=== PATIENT | male | born 1955 | race Caucasian/White ===

== ENCOUNTER → 2016-12-22 | Outpatient (CLI) | payer MEDICARE, MEDICAID ==
[2016-12-22 17:28] LABS: ADJUSTED CALCIUM 8.9 mg/dL (8.4-10.2); ALBUMIN 4.7 gm/dL (3.5-5.0); BILIRUBIN,TOTAL 0.5 mg/dL (0.0-1.0); CALCIUM 9.5 mg/dL (8.4-10.2); CREATININE, serum 0.86 mg/dL (0.66-1.25); TOTAL PROTEIN 8.8 gm/dL (6.4-8.2)
== END ==
LOC: COL.LAB 16:19
PROVIDERS: Nurse Practitioner
DX: I10 Essential (primary) hypertension (principal)

== ENCOUNTER → 2017-01-28 | Outpatient (CLI) | payer MEDICARE, MEDICAID ==
[~2017-01-28] MED LIST: AMBIEN 10MG10 MG PO; BETAPACE 80MG80 MG PO; COREG12.5 MG PO; DESYREL DIVIDO150 M1 PO; KLOR-CON 1010 MEQ PO; LACTULOSE10 GM/153 PO; LIPITOR 80MG80 MG PO; NITROSTAT0.4 MG/TAB SL; NORVASC 10MG10 MG PO; PEPCID40 MG PO; PRILOTC; PRILOTC PO; TYLENOL W/COD1 UDTAB PO; XANAX 0.5MG0.5 MG PO
== END ==
LOC: COL.RAD 09:43
DX: R76.8 Other specified abnormal immunological findings in serum (principal); R74.8 Abnormal levels of other serum enzymes; D64.9 Anemia, unspecified; K62.5 Hemorrhage of anus and rectum; R19.7 Diarrhea, unspecified; K50.90 Crohn's disease, unspecified, without complications

== ENCOUNTER 2017-02-06 10:51 | Day surgery (SDC) | payer MEDICARE, MEDICAID ==
[~2017-02-06] VITALS: Ht 167.6 cm; Wt 72.4 kg
[2017-02-06] MEDS ORDERED: TYLENOL W/COD1 UDTAB PO (11:24)
[2017-02-06] MEDS ORDERED: NORVASC 10MG10 MG PO (11:25)
[2017-02-06] MEDS ORDERED: LIPITOR 80MG80 MG PO (11:25)
[2017-02-06] MEDS ORDERED: PEPCID40 MG PO (11:26)
[2017-02-06] MEDS ORDERED: COREG12.5 MG PO (11:26)
[2017-02-06] MEDS ORDERED: LACTULOSE10 GM/153 PO (11:27)
[2017-02-06] MEDS ORDERED: KLOR-CON 1010 MEQ PO (11:27)
[2017-02-06] MEDS ORDERED: NITROSTAT0.4 MG/TAB SL (11:28)
[2017-02-06] MEDS ORDERED: DESYREL DIVIDO150 M1 PO (11:29)
[2017-02-06] MEDS ORDERED: BETAPACE 80MG80 MG PO (11:29)
[2017-02-06 11:30] VITALS: BP 134/77; PULSE 70; TEMP 97.7
[2017-02-06] MEDS ORDERED: XANAX 0.5MG0.5 MG PO ×2 (11:30→11:31)
[2017-02-06] MEDS ORDERED: PRILOTC (11:31)
[2017-02-06] MEDS ORDERED: AMBIEN 10MG10 MG PO (11:31)
[2017-02-06] MEDS ORDERED: PRILOTC PO (11:32)
[2017-02-06 12:25] VITALS: BP 105/67; PULSE 70; TEMP 97.9
[2017-02-06 12:30] VITALS: BP 102/70; PULSE 77
[2017-02-06 12:45] VITALS: BP 100/71; PULSE 68
[2017-02-06 13:34] VITALS: BP 94/61; PULSE 68
== END 2017-02-06 12:58 | disposition home or self-care (01) ==
LOC: SDCO 10:51
DX: K57.30 Diverticulosis of large intestine without perforation or abscess without bleeding (principal); K60.1 Chronic anal fissure; K92.1 Melena; K44.9 Diaphragmatic hernia without obstruction or gangrene; K74.60 Unspecified cirrhosis of liver; D64.9 Anemia, unspecified; K50.90 Crohn's disease, unspecified, without complications
CPT/HCPCS: J2250; J3010; J7030

== ENCOUNTER → 2017-03-02 | Outpatient (CLI) | payer MEDICARE, MEDICAID | LOC: COL.RAD 11:00 | DX: Z01.812 Encounter for preprocedural laboratory examination (principal); R59.0 Localized enlarged lymph nodes; I25.10 Atherosclerotic heart disease of native coronary artery without angina pectoris; L90.5 Scar conditions and fibrosis of skin; J18.1 Lobar pneumonia, unspecified organism; Z98.890 Other specified postprocedural states; R06.02 Shortness of breath; R06.2 Wheezing | CPT/HCPCS: Q9967 ==

== ENCOUNTER → 2017-08-14 | Outpatient (CLI) | payer MEDICARE, MEDICAID ==
[2017-08-14 14:34] LABS: BASO # 0.1 (0.0-0.2); BASO % 0.7 % (0.0-2.0); EOS # 0.3 (0.0-0.7); EOS % 3.7 % (0-4.0); GRAN # 4.5 (1.4-6.5); GRAN % 66.7 % (42.2-75.2); HEMOGLOBIN 14.2 g/dl (13.5-18.0); LYMPH # 1.1 (1.2-3.4); LYMPH % 16.2 % (20.0-51.0); MEAN CELL VOLUME 92 fl (80.0-100.0); MEAN CORPUSCULAR HEMOGLOBIN 31 pg (27.0-31.0); MEAN CORPUSCULAR HGB CONC 34 g/dl (33.0-37.0); MEAN PLATELET VOLUME 9.1 fl (7.4-10.4); MONO # 0.8 (0.1-0.6); MONO % 12.4 % (1.7-9.3); PLATELET COUNT 176 K/mm3 (130-400); RED BLOOD COUNT 4.59 M/mm3 (4.20-5.60); REDCELL DISTRIBUTION WIDTH-CV 13.9 % (11.5-14.5)
[2017-08-14 14:36] LABS: INR 1.1 (0.8-3.0); PROTHROMBIN TIME 12.4 SECONDS (9.7-12.8)
[2017-08-14 15:02] LABS: ALANINE AMINOTRANSFERASE 39 U/L (21-72); ALBUMIN 4.3 gm/dL (3.5-5.0); ALKALINE PHOSPHATASE 144 U/L (50-136); ANION GAP 15 mmol/L (7-16); AST,SGOT 37 U/L (15-37); BILIRUBIN,TOTAL 0.6 mg/dL (0.0-1.0); BLOOD UREA NITROGEN 9 mg/dL (9-20); CALCIUM 9.7 mg/dL (8.4-10.2); CARBON DIOXIDE 28 mmol/L (22-30); CHLORIDE 105 mmol/L (98-107); CREATININE, serum 0.83 mg/dL (0.66-1.25); GLUCOSE 108 mg/dL (74-106); POTASSIUM 4.5 mmol/L (3.4-5.0); SODIUM 147 mmol/L (137-145); TOTAL PROTEIN 8.3 gm/dL (6.4-8.2)
[2017-08-14 15:10] LABS: AMMONIA < 9 umol/L (11-35)
== END ==
LOC: COL.RAD 08-12 13:30 → COL.LAB 13:46 → COL.RAD 13:46
PROVIDERS: Physician Assistant
DX: K76.0 Fatty (change of) liver, not elsewhere classified (principal); D64.9 Anemia, unspecified; B19.20 Unspecified viral hepatitis C without hepatic coma

== ENCOUNTER → 2017-11-09 | Outpatient (CLI) | payer MEDICARE | LOC: COL.RAD 14:03 | DX: M25.552 Pain in left hip (principal) | CPT/HCPCS: J3301; Q9967 ==

== ENCOUNTER → 2017-12-21 | Outpatient (CLI) | payer MEDICARE ==
[~2017-12-21] MED LIST changes: +ASPIRIN E.C. 8181 MG PO; +DESYREL 100MG100 MG PO; +FERRO-TIME325 MG PO; +FLOMAX 0.40.4 MG/CAP PO; +KLONOPIN WAFER0.5 MG PO; +MULTI VITAMINS1 TAB PO; +NEURONTIN300 MG/CAP PO; +NEURONTIN600 MG/TAB PO; +PLAVIX 75MG TAB75 MG PO; +REQUIP2 MG PO; +UNIPHYL 400MG400 MG PO; +VITAMIND3 5000; +VITAMIND3 5000 PO
== END ==
LOC: COL.LAB 13:47
DX: Z01.812 Encounter for preprocedural laboratory examination (principal)

== ENCOUNTER 2017-12-22 14:45 | Inpatient (IN) | payer MEDICARE ==
[~2017-12-22] VITALS: Ht 167.6 cm; Wt 81.1 kg
[~2017-12-22 14:45] MED LIST changes: -ASPIRIN E.C. 8181 MG PO; -DESYREL 100MG100 MG PO; -FERRO-TIME325 MG PO; -FLOMAX 0.40.4 MG/CAP PO; -KLONOPIN WAFER0.5 MG PO; -MULTI VITAMINS1 TAB PO; -NEURONTIN300 MG/CAP PO; -NEURONTIN600 MG/TAB PO; -PLAVIX 75MG TAB75 MG PO; -REQUIP2 MG PO; -UNIPHYL 400MG400 MG PO; -VITAMIND3 5000; -VITAMIND3 5000 PO
[2017-12-23] VITALS (12 sets, daily range): BP systolic 126–163; BP diastolic 50–98; PULSE 67–113; TEMP 97.4–98.1
[2017-12-23] MEDS ORDERED: PLAVIX 75MG TAB75 MG PO (02:19)
[2017-12-23] MEDS ORDERED: NEURONTIN600 MG/TAB PO (02:21)
[2017-12-23] MEDS ORDERED: REQUIP2 MG PO (02:23)
[2017-12-23] MEDS ORDERED: VITAMIND3 5000 PO (02:24)
[2017-12-23] MEDS ORDERED: VITAMIND3 5000 (02:24)
[2017-12-23] MEDS ORDERED: KLONOPIN WAFER0.5 MG PO (02:27)
[2017-12-23] MEDS ORDERED: FLOMAX 0.40.4 MG/CAP PO (02:28)
[2017-12-23] MEDS ORDERED: ASPIRIN E.C. 8181 MG PO (02:28)
[2017-12-23] MEDS ORDERED: FERRO-TIME325 MG PO (02:30)
[2017-12-23] MEDS ORDERED: UNIPHYL 400MG400 MG PO (02:43)
[2017-12-23] MEDS ORDERED: NEURONTIN300 MG/CAP PO (05:36)
[2017-12-23] MEDS ORDERED: DESYREL 100MG100 MG PO (05:37)
[2017-12-23] MEDS ORDERED: MULTI VITAMINS1 TAB PO (05:41)
[2017-12-24 00:45] VITALS: BP 136/84; PULSE 106; TEMP 98.5
[2017-12-24 04:24] VITALS: BP 125/86; PULSE 94; TEMP 98.2
[2017-12-24 07:24] LABS: HEMOGLOBIN 11.2 g/dl (13.5-18.0)
[2017-12-24 07:25] LABS: HEMATOCRIT 32.6 % (42.0-52.0)
[2017-12-24] MEDS ORDERED: ROXICODONE 55 MG/TAB PO (07:32)
[2017-12-24] MEDS ORDERED: ASPI325T6 PO (07:32)
[2017-12-24 07:35] VITALS: BP 130/88; PULSE 97; TEMP 98.1
[2017-12-24 11:18] VITALS: BP 113/76; PULSE 90; TEMP 98.9
== END 2017-12-24 15:15 | disposition home or self-care (01) | DRG 470 ==
LOC: JCC 12-23 05:12
PROVIDERS: Orthopaedic Surgery Sports Medicine
PROC: 0SRB0JA Replacement of Left Hip Joint with Synthetic Substitute, Uncemented, Open Approach (ICD-10-PCS; principal; 2017-12-23 07:30)
DX: M87.852 Other osteonecrosis, left femur (principal); M06.9 Rheumatoid arthritis, unspecified; I25.10 Atherosclerotic heart disease of native coronary artery without angina pectoris; Z95.5 Presence of coronary angioplasty implant and graft; I10 Essential (primary) hypertension
CPT/HCPCS: A9284; C1713; C1776; J0690; J1100; J2250; J2405; J2704; J3010; J7120

== ENCOUNTER 2018-01-15 23:36 | Inpatient (IN) | payer MEDICARE ==
[~2018-01-15] VITALS: Ht 167.6 cm; Wt 79.6 kg
[~2018-01-15 23:36] MED LIST changes: +ASPI325T6 PO; +ASPIRIN E.C. 8181 MG PO; +DESYREL 100MG100 MG PO; +FERRO-TIME325 MG PO; +FLOMAX 0.40.4 MG/CAP PO; +KLONOPIN WAFER0.5 MG PO; +MULTI VITAMINS1 TAB PO; +NEURONTIN300 MG/CAP PO; +NEURONTIN600 MG/TAB PO; +PLAVIX 75MG TAB75 MG PO; +REQUIP2 MG PO; +ROXICODONE 55 MG/TAB PO; +UNIPHYL 400MG400 MG PO; +VITAMIND3 5000; +VITAMIND3 5000 PO
[2018-01-16 00:01] LABS: BASO # 0.1 (0.0-0.2); BASO % 0.9 % (0.0-2.0); EOS # 0.3 (0.0-0.7); EOS % 5.9 % (0-4.0); GRAN # 3.2 (1.4-6.5); HEMATOCRIT 38.5 % (42.0-52.0); HEMOGLOBIN 12.8 g/dl (13.5-18.0); LYMPH # 1.3 (1.2-3.4); LYMPH % 24.6 % (20.0-51.0); MEAN CELL VOLUME 91 fl (80.0-100.0); MEAN CORPUSCULAR HEMOGLOBIN 30 pg (27.0-31.0); MEAN CORPUSCULAR HGB CONC 33 g/dl (33.0-37.0); MEAN PLATELET VOLUME 8.8 fl (7.4-10.4); MONO # 0.5 (0.1-0.6); MONO % 9.2 % (1.7-9.3); PLATELET COUNT 239 K/mm3 (130-400); RED BLOOD COUNT 4.23 M/mm3 (4.20-5.60); REDCELL DISTRIBUTION WIDTH-CV 15.3 % (11.5-14.5)
[2018-01-16 00:13] LABS: ALBUMIN 4.3 gm/dL (3.5-5.0); BILIRUBIN,TOTAL 0.4 mg/dL (0.0-1.0); CREATININE, serum 0.83 mg/dL (0.66-1.25); POTASSIUM 3.8 mmol/L (3.4-5.0); PROTHROMBIN TIME 11.3 SECONDS (9.7-12.8); TOTAL PROTEIN 8.1 gm/dL (6.4-8.2)
[2018-01-16 00:15] LABS: PARTIAL THROMBOPLASTIN TIME 35.4 SECONDS (26.0-37.0)
[2018-01-16] MEDS ORDERED: NEURONTIN300 MG/CAP PO (01:46)
[2018-01-16] MEDS ORDERED: NEURONTIN600 MG/TAB PO (01:46)
[2018-01-16] MEDS ORDERED: PLAVIX 75MG TAB75 MG PO (01:47)
[2018-01-16] MEDS ORDERED: DESYREL 100MG100 MG PO (01:47)
[2018-01-16] MEDS ORDERED: REQUIP2 MG PO (01:48)
[2018-01-16] MEDS ORDERED: BETAPACE 80MG80 MG PO (01:49)
[2018-01-16] MEDS ORDERED: NORVASC 10MG10 MG PO (01:50)
[2018-01-16] MEDS ORDERED: THEO-24400 MG PO (01:51)
[2018-01-16] MEDS ORDERED: LIPITOR 80MG80 MG PO (01:51)
[2018-01-16] MEDS ORDERED: PEPCID40 MG PO (01:51)
[2018-01-16] MEDS ORDERED: KLOR-CON SPRIN10 MEQ PO (01:52)
[2018-01-16] MEDS ORDERED: PRILOSEC 20MG20 MG PO (01:53)
[2018-01-16] MEDS ORDERED: FLOMAX 0.40.4 MG/CAP PO (01:54)
[2018-01-16] MEDS ORDERED: IRON PO (01:56)
[2018-01-16] MEDS ORDERED: ASPIRIN E.C. 8181 MG PO (01:57)
[2018-01-16] MEDS ORDERED: MULTI VITAMINS1 TAB PO (01:58)
[2018-01-16] MEDS ORDERED: KLONOPIN 0.5MG0.5 MG PO (01:59)
[2018-01-16] MEDS ORDERED: NITROSTAT0.4 MG/TAB SL (02:01)
[2018-01-16] MEDS ORDERED: D3-5050000 IU (02:02)
[2018-01-16] MEDS ORDERED: NORCO 325 MG-51 TAB PO (02:02)
[2018-01-16 02:28] VITALS: BP 150/91; PULSE 84; TEMP 98.2
[2018-01-16 08:29] VITALS: BP 152/88; PULSE 94; TEMP 98.7
[2018-01-16 12:19] VITALS: BP 161/91; PULSE 110; TEMP 98.2
[2018-01-16 14:40] LABS: PH 5 (5-8); SQUAMOUS EPITHELIAL None Seen /hpf; URINE APPEARANCE Clear; URINE BACTERIA None Seen /hpf; URINE BILIRUBIN Negative (NEGATIVE); URINE BLOOD Negative (NEGATIVE); URINE COLOR Yellow; URINE GLUCOSE Negative (NEGATIVE); URINE KETONE Negative (NEGATIVE); URINE LEUKOCYTE ESTERASE Negative (NEGATIVE); URINE NITRATE Negative (NEGATIVE); URINE PROTEIN(semi-quant) Negative (NEGATIVE); URINE RBC 0-2 /hpf; URINE UROBILINOGEN Negative (NEGATIVE)
[2018-01-16 14:48] LABS: TRICYCLIC ANTIDEPRESS URINE NEGATIVE
[2018-01-16 14:50] LABS: COLLECTION METHOD CLEAN CATCH
[2018-01-16 16:19] VITALS: BP 156/96; PULSE 78; TEMP 98.5
[2018-01-16 19:15] VITALS: BP 165/99; PULSE 85; TEMP 98.7
[2018-01-16 23:36] VITALS: BP 161/87; PULSE 88; TEMP 98.3
[2018-01-17 03:55] VITALS: BP 154/98; PULSE 90; TEMP 98.3
[2018-01-17 07:17] LABS: BASO # 0.1 (0.0-0.2); BASO % 0.6 % (0.0-2.0); EOS # 0.1 (0.0-0.7); EOS % 1.7 % (0-4.0); GRAN # 5.6 (1.4-6.5); GRAN % 70.4 % (42.2-75.2); LYMPH # 1.1 (1.2-3.4); LYMPH % 13.5 % (20.0-51.0); MEAN CELL VOLUME 91 fl (80.0-100.0); MEAN CORPUSCULAR HGB CONC 34 g/dl (33.0-37.0); MEAN PLATELET VOLUME 9.5 fl (7.4-10.4); MONO # 1.1 (0.1-0.6); MONO % 13.5 % (1.7-9.3); PLATELET COUNT 232 K/mm3 (130-400); RED BLOOD COUNT 3.55 M/mm3 (4.20-5.60); REDCELL DISTRIBUTION WIDTH-CV 15.2 % (11.5-14.5)
[2018-01-17 07:34] LABS: ALBUMIN 3.4 gm/dL (3.5-5.0); BILIRUBIN,TOTAL 0.5 mg/dL (0.0-1.0); CALCIUM 8.6 mg/dL (8.4-10.2); CREATININE, serum 0.67 mg/dL (0.66-1.25); POTASSIUM 3.1 mmol/L (3.4-5.0); TOTAL PROTEIN 6.7 gm/dL (6.4-8.2)
[2018-01-17 07:44] LABS: HEMATOCRIT 32.2 % (42.0-52.0); HEMOGLOBIN 10.8 g/dl (13.5-18.0); MEAN CORPUSCULAR HEMOGLOBIN 30 pg (27.0-31.0)
[2018-01-17 08:25] VITALS: BP 154/96; PULSE 86; TEMP 99
[2018-01-17 11:38] VITALS: BP 111/72; PULSE 89; TEMP 98.2
[2018-01-17 15:26] VITALS: BP 114/74; PULSE 86; TEMP 9803
[2018-01-17 19:20] VITALS: BP 138/92; PULSE 88; TEMP 98.4
[2018-01-17 23:35] VITALS: BP 160/90; PULSE 87; TEMP 98.2
[2018-01-18] VITALS (8 sets, daily range): BP systolic 101–139; BP diastolic 61–95; PULSE 64–97; TEMP 97.9–98.6
[2018-01-18 06:25] LABS: BASO % 0.4 % (0.0-2.0); EOS # 0.3 (0.0-0.7); EOS % 4.2 % (0-4.0); GRAN # 4.3 (1.4-6.5); GRAN % 62.4 % (42.2-75.2); LYMPH # 1.2 (1.2-3.4); LYMPH % 17.4 % (20.0-51.0); MEAN CELL VOLUME 94 fl (80.0-100.0); MEAN CORPUSCULAR HGB CONC 32 g/dl (33.0-37.0); MEAN PLATELET VOLUME 9.5 fl (7.4-10.4); MONO # 1.1 (0.1-0.6); MONO % 15.3 % (1.7-9.3); PLATELET COUNT 217 K/mm3 (130-400); REDCELL DISTRIBUTION WIDTH-CV 15.1 % (11.5-14.5)
[2018-01-18 06:29] LABS: HEMATOCRIT 30.9 % (42.0-52.0); HEMOGLOBIN 9.9 g/dl (13.5-18.0); MEAN CORPUSCULAR HEMOGLOBIN 30 pg (27.0-31.0)
[2018-01-18 06:35] LABS: CALCIUM 8.7 mg/dL (8.4-10.2); CREATININE, serum 0.66 mg/dL (0.66-1.25); MAGNESIUM 1.8 mg/dL (1.6-2.3); PHOSPHOROUS 3.2 mg/dL (2.5-4.5); POTASSIUM 3.4 mmol/L (3.4-5.0)
[2018-01-19] VITALS (10 sets, daily range): BP systolic 104–151; BP diastolic 56–93; PULSE 62–111; TEMP 97.6–99
[2018-01-20] VITALS (13 sets, daily range): BP systolic 98–157; BP diastolic 52–94; PULSE 77–118; TEMP 98.2–99
[2018-01-20 06:52] LABS: BASO % 0.6 % (0.0-2.0); EOS # 0.4 (0.0-0.7); EOS % 8.2 % (0-4.0); GRAN # 3.2 (1.4-6.5); GRAN % 59.9 % (42.2-75.2); LYMPH % 18.8 % (20.0-51.0); MEAN CELL VOLUME 92 fl (80.0-100.0); MEAN CORPUSCULAR HEMOGLOBIN 31 pg (27.0-31.0); MEAN CORPUSCULAR HGB CONC 33 g/dl (33.0-37.0); MEAN PLATELET VOLUME 9.4 fl (7.4-10.4); MONO # 0.6 (0.1-0.6); MONO % 12.1 % (1.7-9.3); PLATELET COUNT 215 K/mm3 (130-400); RED BLOOD COUNT 3.27 M/mm3 (4.20-5.60); REDCELL DISTRIBUTION WIDTH-CV 14.5 % (11.5-14.5)
[2018-01-20 06:55] LABS: HEMATOCRIT 30.1 % (42.0-52.0)
[2018-01-20 06:59] LABS: CALCIUM 8.7 mg/dL (8.4-10.2); CREATININE, serum 0.66 mg/dL (0.66-1.25)
[2018-01-20 07:07] LABS: POTASSIUM 2.8 mmol/L (3.4-5.0)
[2018-01-21 00:22] VITALS: BP 134/78; PULSE 118; TEMP 98.4
[2018-01-21 04:53] VITALS: BP 149/96; PULSE 110; TEMP 98
[2018-01-21 06:55] LABS: GRAN # 7.5 (1.4-6.5); GRAN % 86.9 % (42.2-75.2); LYMPH # 0.5 (1.2-3.4); LYMPH % 5.4 % (20.0-51.0); MEAN CELL VOLUME 92 fl (80.0-100.0); MEAN CORPUSCULAR HGB CONC 34 g/dl (33.0-37.0); MEAN PLATELET VOLUME 9.7 fl (7.4-10.4); MONO # 0.6 (0.1-0.6); MONO % 7.2 % (1.7-9.3); PLATELET COUNT 232 K/mm3 (130-400); RED BLOOD COUNT 2.64 M/mm3 (4.20-5.60); REDCELL DISTRIBUTION WIDTH-CV 14.3 % (11.5-14.5)
[2018-01-21 06:59] LABS: HEMATOCRIT 24.2 % (42.0-52.0); HEMOGLOBIN 8.1 g/dl (13.5-18.0); MEAN CORPUSCULAR HEMOGLOBIN 31 pg (27.0-31.0)
[2018-01-21 07:00] LABS: CALCIUM 8.2 mg/dL (8.4-10.2); CREATININE, serum 0.61 mg/dL (0.66-1.25); MAGNESIUM 1.9 mg/dL (1.6-2.3); POTASSIUM 3.5 mmol/L (3.4-5.0)
[2018-01-21 08:50] VITALS: BP 158/88; PULSE 113; TEMP 97.4
[2018-01-21 12:37] VITALS: BP 127/86; PULSE 126; TEMP 98.7
[2018-01-21 16:33] VITALS: BP 140/79; PULSE 117; TEMP 99.1
[2018-01-21 19:38] VITALS: BP 113/68; PULSE 119; TEMP 98.5
[2018-01-22] VITALS (7 sets, daily range): BP systolic 99–156; BP diastolic 46–69; PULSE 70–109; TEMP 98.2–98.7
[2018-01-22 06:43] LABS: BASO % 0.1 % (0.0-2.0); EOS # 0.2 (0.0-0.7); EOS % 2.1 % (0-4.0); GRAN # 5.2 (1.4-6.5); GRAN % 72.7 % (42.2-75.2); LYMPH # 0.9 (1.2-3.4); LYMPH % 12.8 % (20.0-51.0); MEAN CELL VOLUME 91 fl (80.0-100.0); MEAN CORPUSCULAR HGB CONC 33 g/dl (33.0-37.0); MEAN PLATELET VOLUME 9.6 fl (7.4-10.4); MONO # 0.9 (0.1-0.6); PLATELET COUNT 228 K/mm3 (130-400); RED BLOOD COUNT 2.33 M/mm3 (4.20-5.60); REDCELL DISTRIBUTION WIDTH-CV 14.4 % (11.5-14.5)
[2018-01-22 06:53] LABS: CALCIUM 8.2 mg/dL (8.4-10.2); CREATININE, serum 0.69 mg/dL (0.66-1.25)
[2018-01-22 06:55] LABS: HEMATOCRIT 21.1 % (42.0-52.0); MEAN CORPUSCULAR HEMOGLOBIN 30 pg (27.0-31.0)
[2018-01-22 06:58] LABS: POTASSIUM 2.7 mmol/L (3.4-5.0)
[2018-01-23] VITALS (11 sets, daily range): BP systolic 100–136; BP diastolic 59–77; PULSE 87–111; TEMP 97.9–99.6
[2018-01-23 08:15] LABS: BASO % 0.5 % (0.0-2.0); EOS # 0.6 (0.0-0.7); EOS % 10.4 % (0-4.0); GRAN # 3.6 (1.4-6.5); GRAN % 58.8 % (42.2-75.2); LYMPH # 1.1 (1.2-3.4); LYMPH % 18.8 % (20.0-51.0); MEAN CELL VOLUME 94 fl (80.0-100.0); MEAN CORPUSCULAR HGB CONC 31 g/dl (33.0-37.0); MEAN PLATELET VOLUME 9.7 fl (7.4-10.4); MONO # 0.7 (0.1-0.6); PLATELET COUNT 244 K/mm3 (130-400); RED BLOOD COUNT 2.34 M/mm3 (4.20-5.60); REDCELL DISTRIBUTION WIDTH-CV 14.5 % (11.5-14.5)
[2018-01-23 08:25] LABS: CALCIUM 8.7 mg/dL (8.4-10.2); CREATININE, serum 0.65 mg/dL (0.66-1.25); MAGNESIUM 1.8 mg/dL (1.6-2.3); POTASSIUM 3.2 mmol/L (3.4-5.0)
[2018-01-23 08:26] LABS: HEMOGLOBIN 6.9 g/dl (13.5-18.0); MEAN CORPUSCULAR HEMOGLOBIN 29 pg (27.0-31.0)
[2018-01-23 18:47] LABS: HEMATOCRIT 26.1 % (42.0-52.0); HEMOGLOBIN 8.4 g/dl (13.5-18.0)
[2018-01-24 04:00] VITALS: BP 139/81; PULSE 103; TEMP 98.3
[2018-01-24 08:36] VITALS: BP 126/72; PULSE 97; TEMP 98.1
[2018-01-24 09:43] LABS: BASO % 0.5 % (0.0-2.0); EOS # 0.8 (0.0-0.7); EOS % 13.9 % (0-4.0); GRAN # 3.4 (1.4-6.5); GRAN % 59.3 % (42.2-75.2); LYMPH % 16.6 % (20.0-51.0); MEAN CELL VOLUME 93 fl (80.0-100.0); MEAN CORPUSCULAR HGB CONC 32 g/dl (33.0-37.0); MEAN PLATELET VOLUME 9.9 fl (7.4-10.4); MONO # 0.5 (0.1-0.6); MONO % 9.2 % (1.7-9.3); PLATELET COUNT 286 K/mm3 (130-400); RED BLOOD COUNT 2.72 M/mm3 (4.20-5.60); REDCELL DISTRIBUTION WIDTH-CV 14.8 % (11.5-14.5)
[2018-01-24 09:44] LABS: HEMATOCRIT 25.3 % (42.0-52.0); MEAN CORPUSCULAR HEMOGLOBIN 29 pg (27.0-31.0)
[2018-01-24 09:52] LABS: CALCIUM 8.7 mg/dL (8.4-10.2); CREATININE, serum 0.71 mg/dL (0.66-1.25); POTASSIUM 3.6 mmol/L (3.4-5.0)
[2018-01-24 12:00] VITALS: BP 125/75; PULSE 85; TEMP 98.5
[2018-01-24] MEDS ORDERED: ASPI325T6 PO (12:43)
[2018-01-24] MEDS ORDERED: VITAMINC500CH PO (12:44)
[2018-01-24] MEDS ORDERED: FOLIC ACID 11 MG/TA1 PO (12:44)
[2018-01-24] MEDS ORDERED: OYSCO 500500 M1 PO (12:45)
[2018-01-24 13:54] VITALS: BP 125/75; PULSE 85; TEMP 98.5
== END 2018-01-24 15:00 | DRG 480 ==
LOC: COL.ER 23:36 → SURG 01-16 01:29
PROVIDERS: Emergency Medicine; Hospitalist; Nurse Practitioner; Nurse Practitioner Family; Orthopaedic Surgery Sports Medicine; Physician Assistant
PROC: 0QS704Z Reposition Left Upper Femur with Internal Fixation Device, Open Approach (ICD-10-PCS; principal; 2018-01-20 12:00)
DX: M97.02XA Periprosthetic fracture around internal prosthetic left hip joint, initial encounter (principal); S72.092A Other fracture of head and neck of left femur, initial encounter for closed fracture; D62 Acute posthemorrhagic anemia; W01.0XXA Fall on same level from slipping, tripping and stumbling without subsequent striking against object, initial encounter; Z91.81 History of falling; I25.10 Atherosclerotic heart disease of native coronary artery without angina pectoris; I10 Essential (primary) hypertension; Z95.5 Presence of coronary angioplasty implant and graft; E78.5 Hyperlipidemia, unspecified; F10.20 Alcohol dependence, uncomplicated; Y90.6 Blood alcohol level of 120-199 mg/100 ml; I48.0 Paroxysmal atrial fibrillation; G47.00 Insomnia, unspecified; N40.0 Benign prostatic hyperplasia without lower urinary tract symptoms; K21.9 Gastro-esophageal reflux disease without esophagitis; J44.9 Chronic obstructive pulmonary disease, unspecified; E87.6 Hypokalemia; B19.20 Unspecified viral hepatitis C without hepatic coma; Z79.02 Long term (current) use of antithrombotics/antiplatelets; Z79.82 Long term (current) use of aspirin
CPT/HCPCS: 99222-AI; 99232-AI; 99233-AI; 99239; A9284; C1713; C1776; J0690; J1100; J1170; J1650; J2250; J2405; J2550; J2704; J2795; J3010; J3475; J3480; J7030; J7050; J7120; P9016

== ENCOUNTER 2018-02-20 13:00 | Observation (INO) | payer MEDICARE ==
[~2018-02-20] VITALS: Ht 170.2 cm; Wt 75.3 kg
[~2018-02-20 13:00] MED LIST changes: +D3-5050000 IU; +FOLIC ACID 11 MG/TA1 PO; +IRON PO; +KLONOPIN 0.5MG0.5 MG PO; +KLOR-CON SPRIN10 MEQ PO; +NORCO 325 MG-51 TAB PO; +OYSCO 500500 M1 PO; +PRILOSEC 20MG20 MG PO; +THEO-24400 MG PO; +VITAMINC500CH PO
[2018-02-20] MEDS ORDERED: FERROUS SU325 MG/TAB PO (13:28)
[2018-02-20 14:00] LABS: BASO % 0.3 % (0.0-2.0); EOS # 0.1 (0.0-0.7); EOS % 1.4 % (0-4.0); GRAN # 4.7 (1.4-6.5); GRAN % 74.1 % (42.2-75.2); HEMOGLOBIN 10.6 g/dl (13.5-18.0); LYMPH # 0.9 (1.2-3.4); LYMPH % 14.1 % (20.0-51.0); MEAN CELL VOLUME 93 fl (80.0-100.0); MEAN CORPUSCULAR HEMOGLOBIN 29 pg (27.0-31.0); MEAN CORPUSCULAR HGB CONC 32 g/dl (33.0-37.0); MEAN PLATELET VOLUME 9.2 fl (7.4-10.4); MONO # 0.6 (0.1-0.6); MONO % 9.8 % (1.7-9.3); PLATELET COUNT 199 K/mm3 (130-400); RED BLOOD COUNT 3.61 M/mm3 (4.20-5.60); REDCELL DISTRIBUTION WIDTH-CV 14.6 % (11.5-14.5)
[2018-02-20 14:02] LABS: HEMATOCRIT 33.5 % (42.0-52.0)
[2018-02-20 14:11] LABS: ALANINE AMINOTRANSFERASE 19 U/L (21-72); ALBUMIN 3.7 gm/dL (3.5-5.0); ALCOHOL(ethanol),MEDICAL < 10 mg/dL; ALKALINE PHOSPHATASE 102 U/L (50-136); ANION GAP 11 mmol/L (7-16); AST,SGOT 21 U/L (15-37); BILIRUBIN,TOTAL 0.4 mg/dL (0.0-1.0); BLOOD UREA NITROGEN 12 mg/dL (9-20); CALCIUM 9.1 mg/dL (8.4-10.2); CARBON DIOXIDE 28 mmol/L (22-30); CHLORIDE 102 mmol/L (98-107); CREATININE, serum 1.01 mg/dL (0.66-1.25); GLUCOSE 130 mg/dL (74-106); SODIUM 141 mmol/L (137-145)
[2018-02-20 15:24] LABS: COLLECTION METHOD CLEAN CATCH
[2018-02-20 15:31] LABS: MUCOUS Present /lpf; PH 6 (5-8); SQUAMOUS EPITHELIAL None Seen /hpf; URINE APPEARANCE Clear; URINE BACTERIA Rare /hpf; URINE BILIRUBIN Negative (NEGATIVE); URINE BLOOD Negative (NEGATIVE); URINE COLOR Yellow; URINE GLUCOSE Negative (NEGATIVE); URINE KETONE Negative (NEGATIVE); URINE LEUKOCYTE ESTERASE Negative (NEGATIVE); URINE NITRATE Negative (NEGATIVE); URINE PROTEIN(semi-quant) Negative (NEGATIVE); URINE RBC 0-2 /hpf; URINE UROBILINOGEN Negative (NEGATIVE)
[2018-02-20 16:07] VITALS: BP 112/64; PULSE 70; TEMP 97.9
[2018-02-20 16:08] VITALS: BP 112/64; PULSE 70; TEMP 98.4
[2018-02-20 19:40] VITALS: BP 106/70; PULSE 86; TEMP 97.6
[2018-02-20 23:28] VITALS: BP 120/77; PULSE 80
[2018-02-21] VITALS: BP 106/65; PULSE 78; TEMP 99
[2018-02-21 04:13] VITALS: BP 116/72; PULSE 82; TEMP 98.1
[2018-02-21 06:16] LABS: BASO % 0.6 % (0.0-2.0); EOS # 0.3 (0.0-0.7); EOS % 5.3 % (0-4.0); GRAN # 2.9 (1.4-6.5); GRAN % 56.5 % (42.2-75.2); LYMPH # 1.3 (1.2-3.4); LYMPH % 24.8 % (20.0-51.0); MEAN CELL VOLUME 92 fl (80.0-100.0); MEAN CORPUSCULAR HGB CONC 32 g/dl (33.0-37.0); MEAN PLATELET VOLUME 9.8 fl (7.4-10.4); MONO # 0.6 (0.1-0.6); MONO % 12.4 % (1.7-9.3); PLATELET COUNT 185 K/mm3 (130-400); RED BLOOD COUNT 3.34 M/mm3 (4.20-5.60); REDCELL DISTRIBUTION WIDTH-CV 14.5 % (11.5-14.5)
[2018-02-21 06:26] LABS: HEMATOCRIT 30.6 % (42.0-52.0); HEMOGLOBIN 9.7 g/dl (13.5-18.0); MEAN CORPUSCULAR HEMOGLOBIN 29 pg (27.0-31.0)
[2018-02-21 06:29] LABS: CALCIUM 8.3 mg/dL (8.4-10.2); CREATININE, serum 0.79 mg/dL (0.66-1.25)
[2018-02-21 06:33] LABS: POTASSIUM 2.9 mmol/L (3.4-5.0)
[2018-02-21 08:05] VITALS: BP 137/89; PULSE 83; TEMP 98
[2018-02-21 09:03] LABS: TRICYCLIC ANTIDEPRESS URINE POSITIVE
[2018-02-21 11:50] VITALS: BP 120/82; PULSE 81; TEMP 97.9
[2018-02-21 14:44] LABS: FOLATE (FOLIC ACID) 17.6 ng/mL (7.0-31.4)
[2018-02-21 15:02] VITALS: BP 130/80; PULSE 91; TEMP 98.7
[2018-02-21 20:43] VITALS: BP 131/70; PULSE 98; TEMP 98.3
[2018-02-22 05:30] VITALS: BP 141/87; PULSE 84; TEMP 98.6
[2018-02-22 06:35] LABS: CALCIUM 9.4 mg/dL (8.4-10.2); CREATININE, serum 0.72 mg/dL (0.66-1.25); MAGNESIUM 1.8 mg/dL (1.6-2.3)
[2018-02-22 07:58] VITALS: BP 145/86; PULSE 86; TEMP 98
[2018-02-22] MEDS ORDERED: TYLENOL 325MG325 MG PO (08:48)
[2018-02-22] MEDS ORDERED: NEURONTIN300 MG/CAP PO (08:48)
[2018-02-22] MEDS ORDERED: K-TAB20 PO (08:49)
[2018-02-22] MEDS ORDERED: THIAMINE 1100 MG/TAB PO (08:49)
[2018-02-22] MEDS ORDERED: KLONOPIN 0.5MG0.5 MG PO (08:50)
[2018-02-22] MEDS ORDERED: NORCO 325 MG-51 TAB PO (08:50)
[2018-02-22 11:06] VITALS: BP 124/74; PULSE 81; TEMP 97.9
[2018-02-22 16:07] VITALS: BP 125/78; PULSE 89; TEMP 98.1
[2018-02-22 19:33] VITALS: BP 123/84; PULSE 96; TEMP 98.1
[2018-02-22 23:40] VITALS: BP 141/94; PULSE 97; TEMP 98.4
[2018-02-23 04:30] VITALS: BP 136/89; PULSE 89; TEMP 98.3
[2018-02-23 07:34] VITALS: BP 138/87; PULSE 84; TEMP 97.9
[2018-02-23 09:08] LABS: CALCIUM 10.1 mg/dL (8.4-10.2); CREATININE, serum 0.76 mg/dL (0.66-1.25); POTASSIUM 3.6 mmol/L (3.4-5.0)
[2018-02-23 12:07] VITALS: BP 123/74; PULSE 84; TEMP 98.4
[2018-02-23 14:02] VITALS: BP 123/74; PULSE 84; TEMP 98.4
== END 2018-02-23 16:38 | disposition home or self-care (01) ==
LOC: COL.ER 13:00 → MEDICAL 14:58
PROVIDERS: Emergency Medicine; Internal Medicine; Nurse Practitioner Family
DX: R53.1 Weakness (principal); R41.82 Altered mental status, unspecified; W19.XXXA Unspecified fall, initial encounter; Z96.642 Presence of left artificial hip joint; D53.9 Nutritional anemia, unspecified; I25.10 Atherosclerotic heart disease of native coronary artery without angina pectoris; F10.20 Alcohol dependence, uncomplicated; I48.0 Paroxysmal atrial fibrillation; I10 Essential (primary) hypertension; E78.5 Hyperlipidemia, unspecified; N40.0 Benign prostatic hyperplasia without lower urinary tract symptoms; K21.9 Gastro-esophageal reflux disease without esophagitis; G47.00 Insomnia, unspecified; E87.6 Hypokalemia; Z79.82 Long term (current) use of aspirin; Z98.52 Vasectomy status; Z87.891 Personal history of nicotine dependence; Z88.8 Allergy status to other drugs, medicaments and biological substances
CPT/HCPCS: 99232-AI; 99239; G0378; G8978-GP; G8979-GP; J3411; J3475; J3480; J7030